=== PATIENT | female | born 1950 | race Caucasian/White ===

== ENCOUNTER → 2017-10-02 | Outpatient (CLI) | payer OTHER | LOC: OIH 09:35 | PROVIDERS: ATTEND Internal Medicine | DX: I10 Essential (primary) hypertension (principal) | CPT/HCPCS: 71046 ==

== ENCOUNTER → 2020-04-22 | Outpatient (CLI) | payer OTHER | END | disposition home or self-care (01) | LOC: OIH 14:33 | PROVIDERS: ATTEND Internal Medicine | DX: M19.011 Primary osteoarthritis, right shoulder (principal); M75.101 Unspecified rotator cuff tear or rupture of right shoulder, not specified as traumatic | CPT/HCPCS: 73030 ==

== ENCOUNTER → 2020-07-07 | Outpatient (CLI) | payer OTHER | END | disposition home or self-care (01) | LOC: RAH 11:57 | PROVIDERS: ATTEND Internal Medicine | DX: M17.12 Unilateral primary osteoarthritis, left knee (principal); M23.92 Unspecified internal derangement of left knee; M81.8 Other osteoporosis without current pathological fracture | CPT/HCPCS: 73562 ==

== ENCOUNTER → 2021-06-07 | Outpatient (CLI) | payer OTHER | END | disposition home or self-care (01) | LOC: OIH 09:16 | PROVIDERS: ATTEND Internal Medicine | DX: R06.00 Dyspnea, unspecified (principal); M51.35 Other intervertebral disc degeneration, thoracolumbar region | CPT/HCPCS: 71046 ==

== ENCOUNTER → 2022-04-19 | Outpatient (CLI) | payer OTHER | END | disposition home or self-care (01) | LOC: RAH 11:55 | PROVIDERS: ATTEND Internal Medicine | DX: R06.02 Shortness of breath (principal) | CPT/HCPCS: 71046 ==

== ENCOUNTER 2023-04-07 07:17 | Day surgery (SDC) | payer OTHER ==
[2023-04-05 15:24] VITALS: BP 125/53; PULSE 63; RESP 14
[2023-04-05 15:27] LABS: BASOPHILS # (AUTO) 0.07 K/uL (0.00-0.20); BASOPHILS % (AUTO) 0.6 % (0.0-5.0); EOSINOPHILS # (AUTO) 0.22 K/uL (0.00-0.70); EOSINOPHILS % (AUTO) 1.8 % (0.0-8.0); HEMATOCRIT 39.9 % (36-48); IMMATURE GRANULOCYTE ABSOLUTE 0.08 K/uL (0-1); LYMPHOCYTES # (AUTO) 2.8 K/uL (1.0-4.8); MEAN CORPUSCULAR HEMOGLOBIN 29.9 pg (27.0-33.0); MEAN CORPUSCULAR HGB CONC 32.1 g/dL (32.0-36.0); MEAN CORPUSCULAR VOLUME 93.2 fL (79-99); MONOCYTES # (AUTO) 1.3 K/uL (0.1-1.0); MONOCYTES % (AUTO) 10.7 % (3.0-13.0); NEUTROPHILS # (AUTO) 7.7 K/uL (1.8-7.7); NEUTROPHILS % (AUTO) 63.2 % (40.0-77.0); PLATELET COUNT (AUTO) 318 K/uL (130-400); RED BLOOD CELL COUNT(AUTO) 4.28 MIL/uL (4.00-5.50); RED CELL DISTRIBUTION WIDTH 13.7 % (11.0-15.5); WHITE BLOOD COUNT (AUTO) 12.2 K/uL (4.8-10.8)
[2023-04-05 15:38] LABS: INR < 0.93 (0.85-1.15); PROTHROMBIN TIME 10.7 SEC (9.6-11.6)
[2023-04-05 15:40] LABS: PARTIAL THROMBOPLASTIN TIME 26.5 SEC (26.3-35.5)
[2023-04-05 15:44] LABS: CREATININE 0.9 mg/dL (0.5-1.5); POTASSIUM 4.4 mmol/L (3.5-5.1)
[2023-04-05 17:11] LABS: B-TYPE NATRIURETIC PEPTIDE 91 pg/mL (0-100)
[~2023-04-07] VITALS: Ht 166.4 cm; Wt 101.6 kg
[2023-04-07] VITALS (9 sets, daily range): BP systolic 132–176; BP diastolic 58–88; PULSE 55–77; RESP 11–18
[~2023-04-07 07:17] MED LIST: AMLO-257 PO; ATOR40TA71 PO; CLOP75TA32 PO; ESCI20TA38 PO; FURO20TA4 PO; IRBE300T18 PO; METO-408 PO; METO-409 PO; NITR0.4T50 SL
[2023-04-07] MEDS ORDERED: 0.9%NACL 1000ML 1,000 ML IV ONE (07:54)
[2023-04-07] MEDS ORDERED: LIDOCAINE HCL 400MG/20ML VIAL ONE (09:51)
[2023-04-07] MEDS ORDERED: FENTANYL CITRATE PF 50 MCG/1 ML 2ML VIAL ONE (09:51)
[2023-04-07] MEDS ORDERED: MIDAZOLAM HCL 1 MG/ML 2ML VIAL ONE ×2 (09:52→10:36)
[2023-04-07] MEDS ORDERED: HEPARIN 10,000 UNIT/10ML (1,000 UNIT/ML) VIAL ONE (09:52)
[2023-04-07] MEDS ORDERED: NITROGLYCERIN 50MG/D5W 250ML 1 BOT ONE (09:52)
[2023-04-07] MEDS ORDERED: VERAPAMIL HCL 2.5 MG/ML VIAL ONE (09:53)
[2023-04-07] MEDS ORDERED: IOHEXOL 350 MG/ML 100ML INFUS..BTL IV ONE (10:01)
[2023-04-07] MEDS ORDERED: IOHEXOL-350 50ML VIAL IV ONE (10:59)
[2023-04-07] MEDS ORDERED: IOHEXOL-350 75 ML VIAL IV ONE (11:12)
[2023-04-07] MEDS ORDERED: 0.9%NACL 1000ML 1,000 ML IV SCH (12:00)
== END 2023-04-07 16:00 | disposition home or self-care (01) ==
LOC: DAH 07:17
PROVIDERS: ATTEND Internal Medicine Interventional Cardiology
DX: I25.119 Atherosclerotic heart disease of native coronary artery with unspecified angina pectoris (principal); Q24.5 Malformation of coronary vessels; I11.0 Hypertensive heart disease with heart failure; I50.32 Chronic diastolic (congestive) heart failure; I49.1 Atrial premature depolarization; E78.2 Mixed hyperlipidemia; G60.8 Other hereditary and idiopathic neuropathies; M79.609 Pain in unspecified limb; Z95.5 Presence of coronary angioplasty implant and graft; Z79.01 Long term (current) use of anticoagulants; Z79.899 Other long term (current) drug therapy
CPT/HCPCS: 80048; 83880; 85025; 85610; 85730; 36415; 71045; 93005; 92920; 92978; 93458; C1769 ×2; C1887 ×2; C1894 ×3; C1760; C1753 ×2; Q9965 ×2; C1725 ×2; J3010; J3490 ×3; J7030; J1644 ×2; J2250 ×2; Q9967 ×3; A4215; A4335; A4222; A4221; A4663; A4216; A4606; A4223 ×3; A4554; 96360; 96361; 99156; 99157

== ENCOUNTER → 2024-01-25 | Outpatient (CLI) | payer OTHER ==
[~2024-01-25] MED LIST changes: -IRBE300T18 PO; +IRBE300T26 PO
== END | disposition home or self-care (01) ==
LOC: RAH 13:22
PROVIDERS: ATTEND Internal Medicine
DX: M47.816 Spondylosis without myelopathy or radiculopathy, lumbar region (principal); M54.50 Low back pain, unspecified
CPT/HCPCS: 72100

== ENCOUNTER 2025-05-15 07:47 | Day surgery (SDC) | payer OTHER ==
[2025-05-15] VITALS (10 sets, daily range): BP systolic 113–143; BP diastolic 49–67; PULSE 69–77; RESP 15–16; TEMP 97.1–98
[~2025-05-15] VITALS: Ht 166.4 cm; Wt 94.3 kg
[~2025-05-15 07:47] MED LIST changes: +BACL10TA PO; -CLOP75TA32 PO; +COLC0.6C3 PO; +DILT30TA3 PO; +FLEC50TA3 PO; +MONT-39 PO; -NITR0.4T50 SL; +PANT40TA54 PO; +SPIR25TA6 PO
[2025-05-15] MEDS ORDERED: RIVA20TA PO (08:53)
[2025-05-15] MEDS: 0.9%NACL 1000ML 1,000 ML IV ONE (09:53)
--- NOTE | 2025-05-15 11:26 | NUR ---
READ AND FOLLOW YOUR DOCTORS' DISCHARGE INSTRUCTIONS. YOU MAY FEEL BLOATED TODAY NOTIFY YOUR DOCTOR ABOUT ANYDO NOT DRIVE, OPERATE HEAVY MACHINERY FOR 24 HOURS. ABDOMINAL PAIN/INTENTION OR SEVERE RECTAL BLEEDING. CALL 911 OR GO TO THE NEAREST EMERGENCY ROOM IF YOU HAVE CHEST PAIN OR DIFFICULTY BREATHING. YOUR THROAT MAY FEEL SORE TODAY IF YOU HAD AN EGD OR COLONOSCOPY.
== END 2025-05-15 11:28 | disposition home or self-care (01) ==
LOC: ENDO 07:47 → DAH 07:47 → ENDO 11:28
PROVIDERS: ATTEND Internal Medicine Gastroenterology
DX: D50.9 Iron deficiency anemia, unspecified (principal); K31.89 Other diseases of stomach and duodenum; R89.7 Abnormal histological findings in specimens from other organs, systems and tissues; K29.80 Duodenitis without bleeding; K31.7 Polyp of stomach and duodenum; K29.60 Other gastritis without bleeding; I25.10 Atherosclerotic heart disease of native coronary artery without angina pectoris; I10 Essential (primary) hypertension; E78.5 Hyperlipidemia, unspecified; J44.9 Chronic obstructive pulmonary disease, unspecified; F41.9 Anxiety disorder, unspecified; F32.A Depression, unspecified; I48.91 Unspecified atrial fibrillation; Z86.73 Personal history of transient ischemic attack (TIA), and cerebral infarction without residual deficits; Z79.02 Long term (current) use of antithrombotics/antiplatelets; Z82.49 Family history of ischemic heart disease and other diseases of the circulatory system; Z98.890 Other specified postprocedural states; Z79.899 Other long term (current) drug therapy
CPT/HCPCS: 44361; 44364; J7030; J2704 ×2; A4649; A4215 ×2; A4223; A4657; A4222; A4221; A4663; A4606; J3490